=== PATIENT | female | born 1980 | race Caucasian/White ===

== ENCOUNTER 2016-11-25 23:57 | Inpatient (IN) | payer BC ==
[~2016-11-25 23:57] MED LIST: ACID REDUCER75 MG PO; BL MAXEPA CAPSU1 CAP PO; CALCIUM500 M2 PO; IBUPROFEN800 MG PO; MOTRIN40 MG/ML PO; NEXIUM40 MG PO; PRENATAL1 EACH PO; ZANTAC 7575 MG PO; [UNRECOGNIZED DRUG - OTHER] PO
[2016-11-26] MEDS ORDERED: PROBIOTIC1 EAC9 PO (00:38)
[2016-11-27 06:09] LABS: BASO % 0.1 % (0-2); EOS % 0.2 % (0-7); HCT-HEMATOCRIT 29.4 % (34.0-49.0); HGB-HEMOGLOBIN 9.9 gm/dl (12.0-15.5); IMMATURE GRANULOCYTES ABSOLUTE 0.04 tho/cmm (0-0.03); IMMATURE GRANULOCYTES PERCENT 0.3 % (0-0.3); LYMPH % 8.9 % (20-45); LYMPH ABSOLUTE COUNT 1.3 tho/cmm (0.8-4.5); MCH (MEAN CORPUSCULAR HGB) 31.5 pg (28.0-32.0); MCHC MEAN CORPUSCULAR HGB CONC 33.7 % (32.0-36.0); MCV (MEAN CELL VOLUME) 93.6 fl (82.0-96.0); MEAN PLATELET VOLUME 10.7 cmc (9.4-12.4); MONO % 4.3 % (0-12); MONOCYTE ABSOLUTE COUNT 0.6 tho/cmm (0.0-1.2); NEUTROPHIL ABSOLUTE COUNT 12.3 tho/cmm (1.6-8.0); NEUTROPHIL-AUTOMATED 12.3 tho/cmm (1.6-8.0); NEUTROPHILS % 86.2 % (40-80); PLATELET COUNT 160 tho/cmm (150-450); RED BLOOD COUNT 3.14 mil/cmm (4.00-5.20); RED CELL DISTRIBUTION WIDTH 12.4 % (12.4-16.4); WHITE BLOOD COUNT 14.3 tho/cmm (4.0-10.0)
[2016-11-28] MEDS ORDERED: IBUPROFEN800 M1 PO (10:30)
== END 2016-11-28 17:50 | DRG 775 ==
LOC: LDR 23:57 → OBGF 11-26 20:40
PROVIDERS: ADMIT Advanced Practice Midwife
PROC: 10E0XZZ Delivery of Products of Conception, External Approach (ICD-10-PCS; principal; 2016-11-26)
DX: O48.0 Post-term pregnancy (principal); O26.893 Other specified pregnancy related conditions, third trimester; O62.0 Primary inadequate contractions; O26.851 Spotting complicating pregnancy, first trimester; O71.82 Other specified trauma to perineum and vulva; Z37.0 Single live birth; Z3A.40 40 weeks gestation of pregnancy; Z67.91 Unspecified blood type, Rh negative
CPT/HCPCS: J2791

== ENCOUNTER 2016-11-29 21:07 | Emergency (ER) | payer BC ==
[~2016-11-29 21:07] MED LIST changes: +IBUPROFEN800 M1 PO; +PROBIOTIC1 EAC9 PO
[2016-11-29 21:45] LABS: BASO % 0.1 % (0-2); EOS % 0.9 % (0-7); EOSINOPHIL ABSOLUTE COUNT 0.1 tho/cmm (0.0-0.7); HCT-HEMATOCRIT 33.4 % (34.0-49.0); HGB-HEMOGLOBIN 11.3 gm/dl (12.0-15.5); IMMATURE GRANULOCYTES ABSOLUTE 0.02 tho/cmm (0-0.03); IMMATURE GRANULOCYTES PERCENT 0.1 % (0-0.3); LYMPH % 3.9 % (20-45); LYMPH ABSOLUTE COUNT 0.6 tho/cmm (0.8-4.5); MCH (MEAN CORPUSCULAR HGB) 32.1 pg (28.0-32.0); MCHC MEAN CORPUSCULAR HGB CONC 33.8 % (32.0-36.0); MCV (MEAN CELL VOLUME) 94.9 fl (82.0-96.0); MEAN PLATELET VOLUME 10.3 cmc (9.4-12.4); MONO % 3.5 % (0-12); MONOCYTE ABSOLUTE COUNT 0.5 tho/cmm (0.0-1.2); NEUTROPHILS % 91.5 % (40-80); PLATELET COUNT 179 tho/cmm (150-450); RED BLOOD COUNT 3.52 mil/cmm (4.00-5.20); RED CELL DISTRIBUTION WIDTH 12.4 % (12.4-16.4); WHITE BLOOD COUNT 14.2 tho/cmm (4.0-10.0)
[2016-11-29 21:54] LABS: URINE BILIRUBIN NEGATIVE (NEG); URINE BLOOD SMALL (NEG); URINE GLUCOSE (UA) NEGATIVE (NEG); URINE KETONE NEGATIVE (NEG); URINE LEUKOCYTE ESTERASE NEGATIVE (NEG); URINE NITRITE NEGATIVE (NEG); URINE PROTEIN NEGATIVE (NEG)
[2016-11-29 21:57] LABS: URINE APPEARANCE CLEAR; URINE COLOR YELLOW
[2016-11-29 22:01] LABS: ALB/GLOB RATIO 0.6 (0.8-2.0); ALBUMIN 2.6 g/dl (3.5-5.0); ALKALINE PHOSPHATASE 121 U/L (33-138); ALT/SGPT 29 U/L (12-78); ANION GAP 16 mmol/L (0-20); AST/SGOT 26 U/L (10-40); BILIRUBIN,TOTAL 0.2 mg/dl (0-1.5); BLOOD UREA NITROGEN 9 mg/dl (6-24); CALCIUM 8.2 mg/dl (8.5-10.5); CARBON DIOXIDE-VENOUS 23 mmol/L (22-32); CHLORIDE 104 mmol/l (96-110); GLUCOSE 114 mg/dL (70-110); LIPASE 159 U/L (73-393); POTASSIUM 4.1 mmol/L (3.7-5.1); SODIUM 139 mmol/L (135-145); eGFR VALUE FOR BLACK >90 mL/Min
[2016-11-29 22:06] LABS: URINE EPITHELIAL CELLS 0-3 /[HPF] (0-10); URINE MUCUS 1+; URINE RBC RARE /[HPF] (0-5)
[2016-11-30] MEDS ORDERED: TYLENOL325 M2 PO (18:13)
== END 2016-11-29 23:04 ==
LOC: EDMED 21:07
PROVIDERS: Emergency Medicine
DX: O86.4 Pyrexia of unknown origin following delivery (principal); Z98.890 Other specified postprocedural states
CPT/HCPCS: J7030

== ENCOUNTER 2016-11-30 17:39 | Observation (INO) | payer BC ==
[2016-11-30] MEDS ORDERED: TYLENOL325 M2 PO (18:13)
== END 2016-12-02 13:22 ==
LOC: OBGE 17:39
PROVIDERS: ADMIT Advanced Practice Midwife
DX: O86.4 Pyrexia of unknown origin following delivery (principal); Z98.890 Other specified postprocedural states
CPT/HCPCS: G0378; G0379; J0290; J1580; J7050